=== PATIENT | female | born 1990 | race African-American/Black ===

== ENCOUNTER 2018-12-28 14:19 | Emergency (ER) | payer SELFPAY ==
[~2018-12-28] VITALS: Ht 167.6 cm; Wt 75.0 kg
[2018-12-28] MEDS ORDERED: MORPHINE SULFATE 4 MG/ML CPJ (NOT FOR IM USE) IV STA (15:20)
[2018-12-28] MEDS ORDERED: ONDANSETRON HCL 4MG/2ML INJ IV STA (15:20)
[2018-12-28] MEDS ORDERED: ACETAMINOPHEN 325MG TABLET PO STA (15:20)
[2018-12-28] MEDS ORDERED: KETOROLAC 30MG/ML VIAL IV STA (15:20)
[2018-12-28] MEDS ORDERED: VANCOMYCIN 1 G PREMIX 200 ML IV ONE (15:30)
[2018-12-28] MEDS ORDERED: PIPERACILLIN/TAZ 3.375G PREMIX 50 ML IV ONE (15:30)
[2018-12-28] MEDS ORDERED: SODIUM CHLORIDE 0.9% 1000ML BAG (SEPSIS BOLUS) IV ONE (15:30)
[2018-12-28 15:39] LABS: BASOPHILS % 0.3 % (0.0-2.0); EOSINOPHILS % 0.1 % (0.0-5.0); HEMATOCRIT. 39.2 % (36.0-48.0); HEMOGLOBIN. 12.9 g/dL (12.0-16.0); LYMPHOCYTES % 11.2 % (20.0-50.0); MEAN CORPUSCULAR HEMOGLOBIN 26.8 pg (28.0-32.0); MEAN CORPUSCULAR VOLUME 81.1 fL (81.0-99.0); MEAN PLATELET VOLUME 8.4 fl (7.4-10.4); MONOCYTES % 5.6 % (2.0-8.0); NEUTROPHILS % 82.8 % (40.0-76.0); PLATELET 272 x1000/uL (130-400); RED BLOOD CELL COUNT 4.83 mill/uL (4.2-5.4); RED CELL DISTRIBUTION WIDTH 13.9 % (11.6-14.6)
[2018-12-28 15:42] LABS: CHLORIDE 100 mEq/L (98-107); PROTHROMBIN TIME 10.2 sec (9.6-11.0)
[2018-12-28 15:46] LABS: ETHANOL BLOOD < 10 mg/dL
[2018-12-28 15:56] LABS: HCG SCREEN NEGATIVE
[2018-12-28] MEDS ORDERED: KETOROLAC 30MG/ML VIAL IV ONE (17:00)
[2018-12-28] MEDS ORDERED: FLUCONAZOLE 100MG TABLET PO ONE (17:00)
[2018-12-28 17:41] LABS: CLARITY URINE CLOUDY (CLEAR); COLOR URINE YELLOW (YELLOW); KETONES URINE 1+ (NEGATIVE); LEUKOCYTE ESTERASE URINE 1+ (NEGATIVE); NITRITE URINE NEGATIVE (NEGATIVE); OCCULT BLOOD URINE 3+ (NEGATIVE); PH URINE 7.5 (4.5-8.0); PROTEIN URINE 1+ (NEGATIVE)
[2018-12-28 18:09] LABS: *AMPHETAMINES SCREEN URINE NEGATIVE (NEGATIVE); *BARBITURATES SCREEN URINE NEGATIVE (NEGATIVE)
[2018-12-28 18:10] LABS: *BENZODIAZEPINES SCREEN URINE NEGATIVE (NEGATIVE); *COCAINE SCREEN URINE NEGATIVE (NEGATIVE); METHADONE URINE SCREEN NEGATIVE (NEGATIVE); PHENCYCLIDINE URINE SCREEN NEGATIVE (NEGATIVE)
[2018-12-28 18:14] LABS: CANNABINOID URINE SCREEN PRESUMTIVE POSITIVE (NEGATIVE); OPIATES URINE SCREEN PRESUMTIVE POSITIVE (NEGATIVE)
[2018-12-28 20:16] VITALS: BP 110/80
== END 2018-12-28 20:25 | disposition home or self-care (01) ==
LOC: ER 14:32
DX: E11.65 Type 2 diabetes mellitus with hyperglycemia (principal); B37.89 Other sites of candidiasis; R50.9 Fever, unspecified
CPT/HCPCS: 36415; 74176; 80053; 80305; 80320; 81003; 82962; 83605; 83690; 84145; 84484; 84703; 85025; 85610; 87040; 87086; 87804; 96365; 96366; 96368; 96375; 96376; 99284; J1885; J2270; J2405; J2543; J3370; J7030; G0480